=== PATIENT | female | born 1955 | race Caucasian/White ===

== ENCOUNTER 2024-02-19 19:13 | Inpatient (IN) | payer OTHER, MEDICARE, SELFPAY ==
[2024-02-19 13:17] VITALS: BP 141/98
[2024-02-19 14:22] LABS: Urine Albumin Trace (Neg - Trace); Urine Bilirubin Negative (Negative); Urine Character Clear (Clear); Urine Color Yellow; Urine Glucose Negative (Negative); Urine Ketone Negative (Negative); Urine Leukocyte Trace (Negative); Urine Nitrite Negative (Negative); Urine Occult Blood Negative (Negative); Urine Urobilinogen Negative (Neg - 1+)
[2024-02-19 14:54] LABS: Urine Hyaline Cast >15 /LPF (0-2); Urine Squamous Cell >30 /LPF (Few)
[2024-02-19 14:57] LABS: Urine Red Blood Cell 0-2 /HPF (0-2); Urine White Cell 0-2 /HPF (0-5)
[2024-02-19 15:55] LABS: % Basophils 0.5 % (0-2); % Eosinophils 2.9 % (0-6); % Immature Granulocytes 0.3 % (0-0.5); % Lymphocytes 21.4 % (20.5-51.1); % Monocytes 9.3 % (1.7-9.3); % Neutrophils 65.6 % (42.2-75.2); Absolute Basophils 0.1 10^3/uL (0-0.2); Absolute Eosinophils 0.3 10^3/uL (0-0.7); Absolute Monocytes 0.9 10^3/uL (0.1-0.6); Hematocrit 33.6 % (37.0-47.0); Hemoglobin 11.7 g/dL (12.0-16.0); Mean Corp Hgb Conc. 34.8 g/dL (33.0-37.0); Mean Corpuscular Hgb 31.1 pg (27.0-31.0); Mean Corpuscular Volume 89.4 fL (81.0-99.0); Mean Platelet Volume 8.8 fL (7.4-10.4); Nucleated Red Blood Cells % 0 %; Platelet Count 434 10^3/uL (130-400); Red Blood Cell Count 3.76 10^6/uL (4.20-5.40); White Blood Cell Count 9.2 10^3/uL (4.8-10.8)
[2024-02-19 15:58] LABS: ALT (SGPT) 22 U/L (0-35); AST (SGOT) 27 U/L (14-36); Alkaline Phosphatase 85 U/L (38-126); Blood Urea Nitrogen 18 mg/dl (7-17); Calcium 9.5 mg/dl (8.4-10.2); Carbon Dioxide 32 mmol/L (22-30); Chloride 100 mmol/L (98-107); Glucose 100 mg/dl (70-99); Lipase 32 U/L (23-300); Potassium 3.7 mmol/L (3.5-5.1); Sodium 135 mmol/L (135-145); Total Bilirubin 0.3 mg/dl (0.2-1.3); Total Protein 6.7 g/dl (6.3-8.2); eGFR 41.24
[2024-02-19] MEDS: NSS 500 IV ×2 (16:18→19:10)
[2024-02-19] MEDS: DILAUDID 1 MG IV ×2 (16:26→21:00)
[2024-02-19] MEDS: DILAUDID 0.5 MG IV ×2 (17:26→18:30)
--- NOTE | 2024-02-19 18:22 | ED.GENMED ---
History of Present Illness
General
Chief Complaint: Abdominal Symptoms
Source: patient and spouse
Exam Limitations: none
Time Seen by Provider: 02/19/24 14:21
Nursing documentation reviewed up to this point in time: agreed with
Travel History
Have you had any contact with someone who has COVID-19?: No
Do you have any symptoms of coronavirus? Fever > 100 degrees, chills, cough, shortness of breath, sore throat, loss of taste or smell, muscle aches, or headache?: No
History of Present Illness
History of Present Illness:
68-year-old female with past medical history of hypothyroidism, migraines, GERD who presents to the emergency department for evaluation of abdominal pain. Patient reports onset of symptoms 2 weeks ago and they have been constant and worsening since
then. She reports pain in the upper abdomen worse on the right side. No clear triggering or relieving factors noted. Associated with nausea but no significant vomiting. She says she has been having regular bowel movements no diarrhea. No
dysuria, hematuria, change in urinary frequency. She says she has had subjective fever off and on for the past 2 weeks. She denies any chest pain or shortness of breath. She denies any other complaints. She does have a prior surgical history of
cholecystectomy, appendectomy.
Review of Systems
Review of Systems
All Other Systems: ROS reviewed and negative except as documented in HPI and ROS
Constitutional: Reports fever and chills; Denies fatigue
EENT: Denies sore throat or runny nose
Respiratory: Denies cough or trouble breathing
Cardiac: Denies chest pain or palpitations
ABD/GI: Reports abdominal pain and nausea; Denies vomiting or diarrhea
: Denies dysuria, frequency or flank pain
Musculoskeletal: Denies neck pain or back pain
Neurological: Denies dizzy, headache, weakness or numbness
Phy Exam
Physical Exam
Physical Exam:
General: Awake, alert, oriented x3; appears uncomfortable
Head: Normocephalic, atraumatic
Eyes: Conjunctiva normal, sclera anicteric
Throat: Airway intact, handling secretions
Neck: Trachea midline, supple without meningismus
Lungs: Clear to auscultation bilaterally, no wheezing, rales, rhonchi
Heart: Regular rate and rhythm, no murmurs, gallops, or rubs
Abd: Soft, non distended, markedly tender to palpation epigastric region and right upper quadrant with voluntary guarding
Neuro: Cranial nerves grossly intact, speech fluid
Skin: no rash
Extremities: No edema in extremities, equal pulses in all extremities
Scores
Heart Failure Risk
Heart Failure Risk Score: Not Applicable
Heart Score for Chest Pain Patients
STEMI patient?: Not applicable
Withdrawal Assessment of Alcohol
Withdrawal Assessment Completed?: Not applicable
Course
Orders/Labs/Results
Orders:
Orders
02/19/24 13:51
Urinalysis Reflex To Culture Urgent
Date Specimen was Collected: 02/19/24
Time Specimen was Collected: 13:46
Urine Microscopic Reflex Cult Urgent
02/19/24 14:25
US Abdomen Complete/Upper Urgent
Comment:
Reason For Exam: RUQ abd pain
02/19/24 15:40
Complete Blood Count/With Diff Urgent
Comprehensive Metabolic Panel Urgent
Lipase Urgent
02/19/24 15:59
CT Abd/pelvis W Iv Cont Urgent
Comment:
Reason For Exam: RUQ/flank pain
0.9% Sodium Chloride 500 ml [Nss] 500 ml IV BOLUS
02/19/24 16:22
HYDROmorphone [Dilaudid] 1 mg IV NOW STA
02/19/24 16:46
HYDROmorphone [Dilaudid] 0.5 mg IV NOW STA
02/19/24 18:22
HYDROmorphone [Dilaudid] 0.5 mg IV NOW STA
Abnormal Lab Results
02/19/24 02/19/24
13:51 15:40
RBC 3.76 L 10^6/uL
(4.20-5.40)
Hgb 11.7 L g/dL
(12.0-16.0)
Hct 33.6 L %
(37.0-47.0)
MCH 31.1 H pg
(27.0-31.0)
Plt Count 434 H 10^3/uL
(130-400)
Absolute Monos (auto) 0.9 H 10^3/uL
(0.1-0.6)
Carbon Dioxide 32 H mmol/L
(22-30)
BUN 18 H mg/dl
(7-17)
Creatinine 1.4 H mg/dL
(0.6-1.0)
Glucose 100 H mg/dl
(70-99)
Leukocyte Esterase Rfl Trace A
(Negative)
02/19/24 15:40
02/19/24 15:40
Vital Signs
Initial and Last Documented VS:
Initial Vital Signs
Temp Pulse Resp BP Pulse Ox
36.7 C 96 16 141/98 98
02/19/24 13:17 02/19/24 13:17 02/19/24 13:17 02/19/24 13:17 02/19/24 13:17
Last Documented Vital Signs
Temp Pulse Resp BP Pulse Ox
36.7 C 96 16 141/98 98
02/19/24 13:17 02/19/24 13:17 02/19/24 13:17 02/19/24 13:17 02/19/24 13:17
MDM/Problems Addressed
Differential Diagnosis Includes:
Choledocholithiasis, pancreatitis, gastritis, PUD/perforated ulcer, hepatitis, nephrolithiasis, UTI
MDM/Problems Addressed:
68-year-old female presents for evaluation of abdominal pain worsening over the past 2 weeks primarily in the right upper quadrant. Associate with intermittent fever she says. Vital signs normal here. Exam as above. Plan to place an IV check
labs including a CBC and a CMP, urinalysis. Sent for upper abdominal ultrasound in triage which is pending�she is already status post cholecystectomy will likely plan for CT of the abdomen pelvis. Will treat pain. Monitor closely reassess after
the above.
Patient still having significant pain after initial dose of Dilaudid, will repeat.
Initial labs reviewed: CBC shows mild anemia otherwise unremarkable. CMP shows creatinine of 1.4 unclear baseline. Urinalysis negative for infection. Upper abdominal ultrasound was negative for any acute pathology. Awaiting results of CT.
CT called back by radiology�possibly acute pancreatitis; she does have significant stool burden as well. Interestingly her lipase is normal--possible patient has chronic pancreatitis causing lack of elevation. Her degree of pain and tenderness
seems out of proportion to her diagnosis of constipation. Will plan to provide IV fluids, will admit for continued management. Discussed with hospitalist for admission.
*Radiology
Radiology exam reviewed: radiology read reviewed
*Pulse Oximetry
Patient hypoxic: no
*Critical Care Note
Total Time (30-74mins, 75-104mins- exclusive of procedures): Not Applicable
Data Reviewed
Source: patient and spouse
Patient Management
Discussion with other providers: Hospitalist (Discussed with hospitalist) and Radiologist (Discussed with radiology)
Escalation/DeEscalation of care consider admission/obs:
Admission indicated
ED Attending Note
-
Portions of this chart may have been created with voice recognition software.� Occasional wrong word or��sound alike� substitutions may have occurred due to the inherent limitations of voice recognition software.
Discharge Plan
Departure
Patient Disposition: Admit
Date of Disposition: 02/19/24
Time of Disposition: 18:29
Admit to doctor: Mack
Presentation/result/management discussed w/ accepting MD/DO: Hospitalist
Discharge Problem:
Intractable abdominal pain, Constipation
Referrals:
Ernestine Rincon MD [Family Provider] -
Interventions
Interventions:
*Risk Screen - Suicide Last Done: 02/19/24 13:17
*General Assessment Last Done: 02/19/24 13:17
*Neglect/Abuse Screening Last Done: 02/19/24 13:17
ED- Fall Risk Assessment Last Done: 02/19/24 15:42
FX-Kptgts-Zottfhjclq Assessment Last Done: 02/19/24 15:42
Discharge Date and Time
Print Language: ARMENIAN
--- NOTE | 2024-02-19 18:55 | HPS.HSE ---
Family Physician
-
Family Physician: Ernestine Rincon MD
Chief Complaint
-
abdominal pain
History of Present Illness
68-year-old female with past medical history of hypertension, hypothyroidism, migraines, GERD, chronic back pain presenting to the emergency room for abdominal pain. Pain started 2 weeks ago and has been constant and worsening since then. Pain is
in the upper central/right abdomen worse on the right side. Pain radiates to the right upper shoulder and back. No triggering or relieving factors noted. Associated nausea and few episodes of vomiting since pain starting. She has been having
regular bowel movements without diarrhea. No urinary symptoms. Patient has had subjective fever intermittently for the past 2 weeks. She denies chest pain or shortness of breath.
She had her gallbladder removed 10 to 15 years ago.
She does not drink alcohol. No smoking. No marijuana use.
Medical History
Past Medical History
Past Medical History: Reports Other (hypertension, hypothyroidism, migraines, GERD, chronic back pain)
Past Surgical History: Reports Other (Cholecystectomy, appendectomy,)
Social History
Tobacco: Non-smoker
Alcohol: None
Drug: None
Family History
Family History: Not pertinent
Allergies / Home Medications
Allergies reflects when Allergies were last updated in [facility].
Home Medications with original date entered in [facility]
Allergy/Medication List:
Allergies
Allergy/AdvReac Type Severity Reaction Status Date / Time
lidocaine Allergy Unknown Verified 02/19/24 13:17
metoclopramide [From Reglan] Allergy Itching Verified 02/19/24 13:17
prochlorperazine Allergy Itching Verified 02/19/24 13:17
[From Compazine]
trimethobenzamide Allergy Itching Verified 02/19/24 13:17
[From Tigan]
Home Medications
alprazolam 0.25 mg tablet 0.25 mg PO BIDPRN PRN anxiety 02/19/24
vqprxkbogd-kblbynpvpnifl-qalhocyq 50 mg-325 mg-40 mg capsule 1 cap PO Q6HPRN PRN headaches 02/19/24
hydromorphone 3 mg rectal suppository 3 mg MN Q6HPRN PRN severe pain 02/19/24
hydroxyzine pamoate 25 mg capsule 25 mg PO TIDPRN PRN anxiety 02/19/24
lamotrigine 100 mg tablet,extended release 24 hr (Lamictal XR) 300 mg PO DAILY 02/19/24
levothyroxine 150 mcg tablet (Synthroid) 150 mcg PO DAILY 02/19/24
morphine 30 mg tablet,extended release 30 mg PO TID 02/19/24
ondansetron 4 mg disintegrating tablet 4 mg PO Q6HPRN PRN nausea 02/19/24
paroxetine HCl 30 mg tablet (Paxil) 30 mg PO DAILY 02/19/24
rabeprazole 20 mg tablet,delayed release (AcipHex) 20 mg PO BID 02/19/24
rimegepant 75 mg disintegrating tablet (Nurtec ODT) 75 mg PO DAILYPRN PRN migraine 02/19/24
topiramate 200 mg tablet (Topamax) 200 mg PO BID 02/19/24
valsartan 320 mg-hydrochlorothiazide 12.5 mg tablet 1 tab PO DAILY 02/19/24
Review of Systems
-
History Source: Patient
A 12 point ROS was completed and negative except as noted: Yes
Constitutional: Reports No Symptoms
EENT: Reports No Symptoms
Respiratory: Reports No Symptoms
Cardiac: Reports No Symptoms
Abdomen/GI: Reports See HPI
: Reports No Symptoms
Musculoskeletal: Reports No Symptoms
Skin: Reports No Symptoms
Neurological: Reports No Symptoms
Endocrine: Reports No Symptoms
Hematologic/Lymphatic: Reports No Symptoms
Psych: Reports No Symptoms
Physical Exam
Vital Signs
Vital Signs
Temp Pulse Resp BP Pulse Ox
98.1 F 96 16 141/98 98
02/19/24 13:17 02/19/24 13:17 02/19/24 13:17 02/19/24 13:17 02/19/24 13:17
Physical Exam
General: Well Developed, Well Nourished and No Apparent Distress
HEENT: NormoCephalic, Moist mucous membranes and Atraumatic
Respiratory: Clear
Cardiac: S1/S2 and Regular Rhythm; No Murmur or Rub
GI: Soft, Non Distended, Normal Bowel Sounds and Tender; No Organomegaly
Rectal: Deferred by Provider
Musculoskeletal: No Clubbing, No Cyanosis and No Edema
Skin: No Rash
Neuro: Nonfocal/grossly intact
Laboratory Results
-
02/19/24 15:40
02/19/24 15:40
Laboratory Results
Total Bilirubin 0.3 mg/dl (0.2-1.3) 02/19/24 15:40
AST 27 U/L (14-36) 02/19/24 15:40
ALT 22 U/L (0-35) 02/19/24 15:40
Alkaline Phosphatase 85 U/L (38-126) 02/19/24 15:40
Lipase 32 U/L (23-300) 02/19/24 15:40
Data Reviewed
-
Lab Data: Labs Reviewed by me
Old Records: Reviewed
Impression/Plan
-
IMPRESSION:
PLAN:
# Acute pancreatitis likely due to gallstones
# History of cholecystectomy
-Abdominal ultrasound unremarkable
-CT abdomen pelvis shows abnormal hypodense appearance of the pancreas with mild diffuse stranding
-Lipase 32
-N.p.o.
-IV fluids
-Check lipid panel
-Hold p.o. morphine, IV Dilaudid for breakthrough pain, Zofran
-GI consulted
# Acute kidney injury
-Monitor with IV fluids
-Hold valsartan/hydrochlorothiazide
Essential hypertension
-Hold valsartan/surgical diet
Hypothyroidism
-Continue levothyroxine
History of migraines
-Continue topiramate, Nurtec, Lamictal
GERD
-Continue PPI
Chronic back pain
-Hold p.o. morphine, IV Dilaudid for pain
Anxiety/depression
-Continue Xanax, paroxetine
Full code
DVT prophylaxis�heparin
N.p.o.
[2024-02-19 20:40] VITALS: BP 127/85; BMI 33.0
[2024-02-19 21:19] LABS: HDL Cholesterol 58 mg/dl; LDL Cholesterol, Calculated 95 mg/dl; Total Cholesterol 188 mg/dl (50-199); Triglyceride 175 mg/dl (10-149); Very Low Density Lipoprotein 35 mg/dl (0-30)
--- NOTE | 2024-02-19 21:32 | PTCARENOTE ---
pt arrived from ed. walked into room, aaox3, VSS, pt c/o sever abdominal pain and back pain. PRN IV dilaudid given, see MAR and assessment for further details. home medications sent to pharmacy. call mendez within reach.
[2024-02-19] MEDS: PROTONIX 40 MG PO (21:43)
[2024-02-19] MEDS: NON-FORMULARY ITEM 300 MG PO (22:55)
[2024-02-19] MEDS: NON-FORMULARY ITEM 1 UNIT PO (22:56)
[2024-02-19] MEDS: MS CONTIN (EXTENDED RELEASE) 30 MG PO (22:58)
[2024-02-19 23:25] VITALS: BP 134/92
[2024-02-19] MEDS: LR 1000 IV (23:34)
[2024-02-20] MEDS: DILAUDID 0.5 MG IV (00:19)
[2024-02-20] MEDS: ZOFRAN ODT (ORALLY DISINTEGRATING) 4 MG PO (00:19)
--- NOTE | 2024-02-20 01:10 | W.PN.UPDATE ---
Update Note
Progress Note Update
RN notified ENTRY LEVEL PROGRAMMER, patient asking for her home medication Morphine 30mg PO TID that is on hold per Dr. Gilliam, Patient told RN she will leave if she did not get her home medications. Medications ordered, Dr. Gilliam made aware
RN notified ENTRY LEVEL PROGRAMMER again, patient in tears and asking for more pain medications.
Patient seen and evaluated, on phone with her , stated she continuous to have pain 10/10 on right side of the abdomen to right back. requested IV Dilaudid 3mg now. Advised the side effects of a higher dose. Patient agreed for 0.5mg IV
Dilaudid for moderate pain and 1mg IV Dilaudid for severe pain, K pad and also Zofran SL now for nausea.
[2024-02-20] MEDS: DILAUDID 1 MG IV ×4 (01:14→10:49)
[2024-02-20] MEDS: ATARAX 25 MG PO ×2 (01:23→19:32)
[2024-02-20] MEDS: LR 1000 IV ×4 (03:24→19:26)
[2024-02-20] MEDS: NON-FORMULARY ITEM 1 UNIT PO ×3 (05:29→19:31)
--- NOTE | 2024-02-20 06:39 | W.PN.HOSP.TC ---
Today's Communication/Plan
-
pain control
bowel rest npo except meds
IVF support
GI eval
Assessment / Plan
Assessment / Plan
Physical Exam
General: Mild moderate distress d/t pain Obese
HEENT: NormoCephalic, Moist mucous membranes and Atraumatic
Respiratory: Clear
Cardiac: S1/S2 and Regular Rhythm; No Murmur or Rub
GI: Soft, Non Distended, Normal Bowel Sounds and Tender; No Organomegaly
Musculoskeletal: No Clubbing, No Cyanosis and No Edema
Skin: No Rash
Neuro: Nonfocal/grossly intact
68F HTN Hypothyroidism Migraines GERD Chronic Back Pain p/w abd pain 2 wks possibly due to acute pancreatitis.
# Acute pancreatitis likely due to gallstones
# History of cholecystectomy
-Abdominal ultrasound unremarkable
-CT abdomen pelvis shows abnormal hypodense appearance of the pancreas with mild diffuse stranding
-Lipase 32
-N.p.o. except meds
-IV fluids
-Lipid panel appreciated mild Triglyceride Cholesterol elevation
-Cont home PO morphine, IV Dilaudid for breakthrough pain, Zofran
-GI consult appreciated
-Follow up MRI/MRCP results
# Acute kidney injury
-Monitor with IV fluids
-Hold valsartan/hydrochlorothiazide
Essential hypertension
-Hold valsartan/surgical diet
Hypothyroidism
-Continue levothyroxine
History of migraines
-Continue topiramate, Nurtec, Lamictal
GERD
-Continue PPI
Chronic back pain
-cont home PO morphine
-IV Dilaudid prn
Anxiety/depression
-Continue home atarax prn, paroxetine discontinued patient denies taking
Full code
DVT prophylaxis�heparin
I spent a total of 50 minutes with the patient or on the floor. More than 50% of this time involved counseling and coordination of care.
Anticipated Discharge: 24 - 48 hours
Subjective/Interval History
-
Date of Service: February 20, 2024
Reports abd pain right sided associate intermittent nausea denies vomiting. Reports regular bowel movements, denies diarrhea.
Objective Data
-
Labs:
Laboratory Results
02/20/24
06:00
WBC Pending
Hgb Pending
Hct Pending
Plt Count Pending
Sodium Pending
Potassium Pending
Chloride Pending
Carbon Dioxide Pending
BUN Pending
Creatinine Pending
Glucose Pending
Calcium Pending
Total Bilirubin Pending
AST Pending
ALT Pending
Alkaline Phosphatase Pending
Vital Signs:
Vital Signs
Temp Pulse Resp BP Pulse Ox
98.4 F 88 18 134/92 97
02/19/24 23:25 02/19/24 23:25 02/19/24 23:25 02/19/24 23:25 02/19/24 23:25
I&O
02/18/24 02/19/24 02/20/24
06:59 06:59 06:59
Intake Total 240 / 240
Balance 240 / 240
[2024-02-20 07:00] VITALS: BP 135/55
[2024-02-20 07:58] LABS: % Eosinophils 7.6 % (0-6); % Immature Granulocytes 0.2 % (0-0.5); % Lymphocytes 40.2 % (20.5-51.1); % Monocytes 9.8 % (1.7-9.3); % Neutrophils 41.2 % (42.2-75.2); Absolute Basophils 0.1 10^3/uL (0-0.2); Absolute Eosinophils 0.4 10^3/uL (0-0.7); Absolute Monocytes 0.5 10^3/uL (0.1-0.6); Hematocrit 28.1 % (37.0-47.0); Hemoglobin 9.7 g/dL (12.0-16.0); Mean Corp Hgb Conc. 34.5 g/dL (33.0-37.0); Mean Corpuscular Hgb 30.7 pg (27.0-31.0); Mean Corpuscular Volume 88.9 fL (81.0-99.0); Mean Platelet Volume 8.9 fL (7.4-10.4); Nucleated Red Blood Cells % 0 %; Platelet Count 330 10^3/uL (130-400); Red Blood Cell Count 3.16 10^6/uL (4.20-5.40); Red Cell Dist. Width 13.7 % (11.5-14.5); White Blood Cell Count 4.9 10^3/uL (4.8-10.8)
[2024-02-20] MEDS: MS CONTIN (EXTENDED RELEASE) 30 MG PO ×3 (07:58→22:08)
[2024-02-20] MEDS: PROTONIX 40 MG PO ×2 (07:58→19:50)
[2024-02-20] MEDS: NON-FORMULARY ITEM PO (08:06)
[2024-02-20 08:34] LABS: ALT (SGPT) 16 U/L (0-35); AST (SGOT) 26 U/L (14-36); Alkaline Phosphatase 73 U/L (38-126); Blood Urea Nitrogen 12 mg/dl (7-17); Calcium 8.8 mg/dl (8.4-10.2); Carbon Dioxide 25 mmol/L (22-30); Chloride 105 mmol/L (98-107); Estimated Creatinine Clearance 56 ml/min; Glucose 94 mg/dl (70-99); Potassium 3.9 mmol/L (3.5-5.1); Sodium 136 mmol/L (135-145); Total Bilirubin 0.7 mg/dl (0.2-1.3); Total Protein 5.4 g/dl (6.3-8.2); eGFR > 60.00
--- NOTE | 2024-02-20 12:04 | CON.GI ---
Addendum entered and electronically signed by Etelvina Camejo MD 02/20/24 17:26:
I saw and examined the patient.
The BOOKING MANAGER or PA's note was reviewed and I agree with the note.
Comment: 68-year-old female past medical history as below follows with Dr. Tabor on outpatient presenting with abdominal pain throughout her upper abdomen for the last 2 weeks. She underwent a CT scan which showed pancreatitis and moderate amount
of stool in the colon. Ultrasound unremarkable. Lipase is normal. Hemoglobin 9.7, normal white count, normal lipase, normal LFTs. She has history of cholecystectomy and denies alcohol use. Recently was placed on Paxil I looked up I do not see a
clear link of Paxil with pancreatitis. HCTZ reviewed with her has been associated with pancreatitis but she has been on it for more than 30 years. MRI/MRCP is done and pending official read. IgG4 ordered. I will increase IV fluids to 150 given
her weight. Monitor I's and O's. Continue NPO. She continues to have significant amount of pain - of note on home morphine as well. Continue pain meds which I reviewed with the nurse. Will also check CRP in the morning.
Original Note:
Consultation
-
Date/Time Consultation Requested: 02/19/24 2300
Date/Time Consultation Performed: 02/20/24 1130
Requesting Provider: Dr. Mendoza
Performing Provider: Dr. Camejo/CAROL Connors
Reason for Consultation: pancreatitis
Medical History
Chief Complaint / HPI
Chief Complaint: abd pain
History of Present Illness:
68 yr old female with PMH HTN, HLD, GERD/Barretts, hypothyroid and chronic pain presents to ER with 2 week hx of abd pain. Asked to evaluate for the same. Patient states that she started with acute onset of abdominal pain that was in the epigastric
area that radiated to the right with pain into her back that was dull,intermittent, nothing made better except for a heating pad and rest, food and movement made worse. Associated with fevers, chills, nausea and vomiting that was bilious nature,
she did have pruritus. She denies any acholic stools or bilirubinuria. She was started on Paxil approximately a month and a half ago and dose was increased. She has since stopped this. The pain changed locations and became more periumbilical and
constant with more of a burning sensation prompting her to call her primary sterile preparation technician who is Dr. Estrada. Labs were ordered I did contact patient's sterile preparation technician who told me that her alk phos was elevated as well as GGTP. Patient
also had an elevated triglyceride level. Her lipase was within normal limits. But because of her symptoms she was asked to go to the emergency room for concerns of pancreatitis. The patient does not drink any alcohol. She does not smoke. She
has a history of a cholecystectomy approximately 10 years ago. Initially labs showed WBC 9.2, hemoglobin 11.7, hematocrit 33.6, platelet count 434, MCV 89.4, MCH 31.1, sodium 135, potassium 3.7, chloride 100, CO2 32, BUN 18, creatinine 1.4, calcium
9.5, glucose 100, total bilirubin 0.3, AST 27, ALT 22, alk phos 85, triglycerides 175, lipase 32. After giving fluid bolus followed by IV fluids at 200 cc an hour now dropped down to 100 cc an hour hemoglobin is 9.7. Creatinine also improved and
is 1.0. Ultrasound of the abdomen shows no acute intra-abdominal process identified. Status post cholecystectomy. CBD measures [address] of the abdomen and pelvis with IV contrast only shows 2 hypodensities in the liver most consistent with
cysts. No other definite lesion identified in the liver. Spleen unremarkable. The pancreas is hypodense, and is ill-defined. No adjacent fluid or fluid collection. Minimal stranding inferior to the pancreas, suggest pancreatitis. Moderate
amount of stool throughout the colon. No bowel obstruction. Mild diverticulosis. No CT evidence of diverticulitis
Past Medical History
Past Medical History: GERD (Barretts), HTN, Hypercholesterolemia, Hypothyroidism, Psychiatric (depression, anxiety) and Other (chronic back pain. migraine)
Past Surgical History: Appendectomy and Cholecystectomy
Social History
Tobacco: Non-Smoker
Alcohol: None
Drug: None
Personal:
Living: With Family
Family History
Family History: Other (No fam hx GI malignancy or IBD)
Allergies / Home Medications
Allergy/AdvReac Type Severity Reaction Status Date / Time
lidocaine Allergy Unknown Verified 02/19/24 13:17
metoclopramide [From Reglan] Allergy Itching Verified 02/19/24 13:17
prochlorperazine Allergy Itching Verified 02/19/24 13:17
[From Compazine]
trimethobenzamide Allergy Itching Verified 02/19/24 13:17
[From Tigan]
�Medication �Instructions �Recorded
alprazolam 0.25 mg tablet 0.25 mg PO BIDPRN PRN anxiety 02/19/24
pvzyzodqxk-qfgiwedmfimtp-jvuaobrd 1 cap PO Q6HPRN PRN headaches 02/19/24
50 mg-325 mg-40 mg capsule
hydromorphone 3 mg rectal 3 mg CO Q6HPRN PRN severe pain 02/19/24
suppository
hydroxyzine pamoate 25 mg capsule 25 mg PO TIDPRN PRN anxiety 02/19/24
lamotrigine 100 mg tablet,extended 300 mg PO HS 02/19/24
release 24 hr (Lamictal XR)
levothyroxine 150 mcg tablet 150 mcg PO DAILY 02/19/24
(Synthroid)
morphine 30 mg tablet,extended 30 mg PO TID 02/19/24
release
ondansetron 4 mg disintegrating 4 mg PO Q6HPRN PRN nausea 02/19/24
tablet
promethazine 50 mg rectal 50 mg CO Q8HPRN PRN nausea 02/19/24
suppository (Promethegan)
rabeprazole 20 mg tablet,delayed 20 mg PO BID 02/19/24
release (AcipHex)
rimegepant 75 mg disintegrating 75 mg PO DAILYPRN PRN migraine 02/19/24
tablet (Nurtec ODT)
topiramate 200 mg tablet (Topamax) 200 mg PO BID 02/19/24
valsartan 320 1 tab PO DAILY 02/19/24
mg-hydrochlorothiazide 12.5 mg
tablet
Review of Systems
-
All other systems: A 12 pt ROS was Negative except as stated above in HPI
Vital Signs
Temp Pulse Resp BP Pulse Ox
97.9 F 83 18 135/55 93
02/20/24 07:00 02/20/24 07:00 02/20/24 07:00 02/20/24 07:00 02/20/24 07:00
Physical Exam
Exam
General: No Apparent Distress
HEENT: Anicteric
GI: Soft, Non Distended, Normal Bowel Sounds and Tender (periumbilical/RUQ/epigstric)
Musculoskeletal: No Edema
Skin: Warm and Dry
Neuro: AO x 3
Psych: Calm
Results
WBC 4.9 10^3/uL (4.8-10.8) 02/20/24 07:45
Hgb 9.7 g/dL (12.0-16.0) L 02/20/24 07:45
Hct 28.1 % (37.0-47.0) L 02/20/24 07:45
MCV 88.9 fL (81.0-99.0) 02/20/24 07:45
Plt Count 330 10^3/uL (130-400) D 02/20/24 07:45
Absolute Neuts (auto) 2.0 10^3/uL (1.4-6.5) 02/20/24 07:45
Sodium 136 mmol/L (135-145) 02/20/24 07:45
Potassium 3.9 mmol/L (3.5-5.1) 02/20/24 07:45
Chloride 105 mmol/L (98-107) 02/20/24 07:45
Carbon Dioxide 25 mmol/L (22-30) 02/20/24 07:45
BUN 12 mg/dl (7-17) 02/20/24 07:45
Creatinine 1.0 mg/dL (0.6-1.0) 02/20/24 07:45
Calcium 8.8 mg/dl (8.4-10.2) 02/20/24 07:45
Total Bilirubin 0.7 mg/dl (0.2-1.3) 02/20/24 07:45
AST 26 U/L (14-36) 02/20/24 07:45
ALT 16 U/L (0-35) 02/20/24 07:45
Alkaline Phosphatase 73 U/L (38-126) 02/20/24 07:45
Lipase 32 U/L (23-300) 02/19/24 15:40
Diagnostic Image Results:
CT Abd/Pelvis wth IV contrast:
IMPRESSION:
Abnormal hypodense appearance to the pancreas, with mild diffuse stranding, suggests pancreatitis. No adjacent free fluid or fluid collection to suggest an abscess. No free air.
Moderate amount of stool throughout the colon. No bowel obstruction Mild diverticulosis. No CT evidence for diverticulitis.
Results discussed with Dr. Naylor at 6:20 PM.
Electronically signed by Harini Cardenas MD 02/19/2024 6:26 PM
US Abd:
IMPRESSION: No acute intra-abdominal process identified sonographically. Post cholecystectomy.
Prior GI Procedures:
EGD: 'couple years ago' Records unavailable to me. GERD/Barretts ([facility])
Colonoscopy: 'couple years ago' records unavailable to me. ([facility])
Assessment / Plan
-
68 yr old female with PMH HTN, HLD, GERD/Barretts, hypothyroid and chronic pain presents to ER with 2 week hx of abd pain. Asked to evaluate for the same. Patient states that she started with acute onset of abdominal pain that was in the epigastric
area that radiated to the right with pain into her back that was dull,intermittent, nothing made better except for a heating pad and rest, food and movement made worse. Associated with fevers, chills, nausea and vomiting that was bilious nature,
she did have pruritus. She denies any acholic stools or bilirubinuria. She was started on Paxil approximately a month and a half ago and dose was increased. She has since stopped this. The pain changed locations and became more periumbilical and
constant with more of a burning sensation prompting her to call her primary sterile preparation technician who is Dr. Estrada. Labs were ordered I did contact patient's sterile preparation technician who told me that her alk phos was elevated as well as GGTP. Patient
also had an elevated triglyceride level. Her lipase was within normal limits. But because of her symptoms she was asked to go to the emergency room for concerns of pancreatitis. CT imaging does not show stranding about the pancreas consistent with
pancreatitis. Lipase and LFTs are normal here. Triglycerides slightly elevated. Still with continued pain.
Impression:
Pancreatitis
--no ETOH, s/p CCY but had elevated Alk Phos and GGTP as o/p, new Paxil (not common side effect, now stopped), Trig 133. Calcium WNL
--Patient on valsartan with HCTZ (could be possibility)
GERD/Barretts
Chronic Pain
Plan:
-Npo, when pain improves will start clear liquids
-IVF
-Incentive spirometer
-Pain control
-Check IgG4
-Obtain MRI/MRCP for completeness, had elevated Alk Phos and GGTP.
-Will need outpatient EUS in 6-8 weeks, discussed with Dr. Estrada (will arrange with Dr. Stovall here for EUS) and have patient follow up with Dr. Estrada for primary GI concerns.
-Continue Pantoprazole
Data Reviewed
-
CT Scan: Report Reviewed by me
Ultrasound: Report Reviewed by me
-
-
Thank you for consultation and allowing me to participate in the patient's care. Please call the sales relationship manager GI physician during the after hours with any questions or concerns.
--- NOTE | 2024-02-20 12:57 | CM ---
Reviewed chart, met with patient to obtain information for assessment. Patient 's spouse was at bedside. Patient stated that she lives with her spouse in a two story home with two steps to enter. She described herself as independent with all her
ADLs, personal care, dressing and bathing. She ambulates without use of an assistive device.
Patient relayed that she can drive and can transport herself to appointments and do her own shopping. Patient's spouse can drive patient as well as she has not felt well for the past few weeks.
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
She denied ever having been to a SNF. She has never had VN services.
Patient has a prescription plan and uses [facility] in [place] for all of her medications.
Patient's PCP is Zully Rincon,
Physically patient stated that she is in a lot of pain but functionally she is at baseline and her spouse confirmed that he can support her.
Plan: Case management will continue to follow and assist with discharge planning. Patient should be able to return home when stable.
[2024-02-20 15:29] VITALS: BP 136/72
[2024-02-20] MEDS: FLUSH (NSS) 2 FLUSH IV (15:33)
[2024-02-20] MEDS: DILAUDID 2 MG IV ×3 (15:33→23:48)
[2024-02-20] MEDS: LR IV (18:14)
[2024-02-20] MEDS: FIORICET 1 TAB PO (19:50)
[2024-02-20] MEDS: NON-FORMULARY ITEM 300 MG PO (22:07)
[2024-02-20] MEDS: ZOFRAN 4 MG IV (22:21)
[2024-02-20 22:24] LABS: Hepatitis C Antibody Negative (Negative)
[2024-02-21 00:12] VITALS: BP 147/61
[2024-02-21] MEDS: ATARAX 25 MG PO (00:13)
[2024-02-21] MEDS: LR 1000 IV ×2 (02:46→09:51)
[2024-02-21] MEDS: DILAUDID 2 MG IV ×2 (03:44→09:30)
--- NOTE | 2024-02-21 06:00 | VATNOTE ---
Skin irritation around midline dressing marked yesterday appears to be resolving as reported by patient.
[2024-02-21] MEDS: NON-FORMULARY ITEM 1 UNIT PO ×2 (06:04→09:03)
[2024-02-21 07:00] VITALS: BP 125/63
[2024-02-21 07:27] LABS: Hematocrit 27.6 % (37.0-47.0); Hemoglobin 9.7 g/dL (12.0-16.0); Mean Corp Hgb Conc. 35.1 g/dL (33.0-37.0); Mean Corpuscular Volume 88.2 fL (81.0-99.0); Mean Platelet Volume 8.9 fL (7.4-10.4); Platelet Count 307 10^3/uL (130-400); Red Blood Cell Count 3.13 10^6/uL (4.20-5.40); Red Cell Dist. Width 13.4 % (11.5-14.5); White Blood Cell Count 4.9 10^3/uL (4.8-10.8)
[2024-02-21 08:14] LABS: ALT (SGPT) 17 U/L (0-35); AST (SGOT) 29 U/L (14-36); Albumin 3.1 g/dl (3.5-5.0); Alkaline Phosphatase 74 U/L (38-126); Blood Urea Nitrogen 9 mg/dl (7-17); Carbon Dioxide 22 mmol/L (22-30); Chloride 107 mmol/L (98-107); Estimated Creatinine Clearance 62 ml/min; Glucose 86 mg/dl (70-99); Potassium 3.8 mmol/L (3.5-5.1); Sodium 135 mmol/L (135-145); Total Bilirubin 0.6 mg/dl (0.2-1.3); Total Protein 5.4 g/dl (6.3-8.2); eGFR > 60.00
[2024-02-21 08:22] LABS: Direct Bilirubin 0.3 mg/dl (0.0-0.4)
[2024-02-21] MEDS: MS CONTIN (EXTENDED RELEASE) 30 MG PO (09:03)
[2024-02-21] MEDS: PROTONIX 40 MG PO (09:03)
[2024-02-21] MEDS: ZOFRAN 4 MG IV (09:51)
[2024-02-21 12:12] LABS: Lipase 29 U/L (23-300)
--- NOTE | 2024-02-21 12:15 | W.PN.UPDATE ---
Update Note
Progress Note Update
Patient AOX3 competent to make her own medical decisions requested to leave against medical advice.
Risk of leaving were discussed such as recurrence of symptoms, increased risk of injury and even the possibility of .
Patient able to verbalize her understanding of risk, nonetheless requested to be allowed to leave.
Patient's wishes were respected and she signed out AMA.
--- NOTE | 2024-02-21 12:15 | W.DCSUMMARY ---
Discharge Summary
Discharge Data
Date of Admission: 02/19/24
Date of Discharge: 02/21/24
-
Pending Results: No
Hospital Course
68F HTN Hypothyroidism Migraines GERD Chronic Back Pain p/w abd pain 2 wks possibly due to acute pancreatitis. Acute pancreatitis suspected due to gallstones, History of cholecystectomy, Abdominal ultrasound unremarkable, CT abdomen pelvis showed
abnormal hypodense appearance of the pancreas with mild diffuse stranding suggestive pancreatitis. Lipase however low 32. Placed on bowel rest, npo except meds, IV fluids, lipid panel appreciated mild Triglyceride Cholesterol elevation. Home PO
morphine, IV Dilaudid for breakthrough pain, Zofran for nausea was administered. MRI/MRCP noted no acute process in the abdomen, severely limited examination due to patient motion and breathing motion artifact. Similar to the CT scan of the
abdomen and pelvis the day before there was a small cyst in the liver. There was dilatation of the common bile duct measuring 9 mm however no filling defect. Pancreatic duct normal caliber. There was peripancreatic diffuse volume loss, atrophy and
fatty replacement. No significant stranding about the pancreas to suggest pancreatitis. ROLLY resolved with IVF. Patient later decided to sign out AMA as noted in Hospitalist Update Note 02/21/24
Discharge Plan
-
Patient Disposition: Against Medical Advice
Referrals:
Ernestine Rincon MD [Family Provider] -
Prescriptions:
No Action
xmajisekrz-ggtlhqaqhisib-gvsl 50-325-40 mg capsule
1 cap PO Q6HPRN PRN (Reason: headaches)
rabeprazole [AcipHex] 20 mg tablet,delayed release (DR/EC)
20 mg PO BID
morphine 30 mg tablet extended release
30 mg PO TID
alprazolam 0.25 mg tablet
0.25 mg PO BIDPRN PRN (Reason: anxiety)
levothyroxine [Synthroid] 150 mcg Tablet
150 mcg PO DAILY@06
topiramate [Topamax] 200 mg tablet
200 mg PO BID
ondansetron 4 mg tablet,disintegrating
4 mg PO Q6HPRN PRN (Reason: nausea)
hydroxyzine pamoate 25 mg capsule
25 mg PO TIDPRN PRN (Reason: anxiety)
hydromorphone 3 mg Suppository
3 mg MO Q6HPRN PRN (Reason: severe pain)
valsartan-hydrochlorothiazide 320-12.5 mg tablet
1 tab PO DAILY
lamotrigine [Lamictal XR] 100 mg tablet extended release 24hr
300 mg PO HS
Nurtec ODT 75 mg tablet,disintegrating
75 mg PO DAILYPRN PRN (Reason: migraine)
promethazine [Promethegan] 50 mg suppository
50 mg MO Q8HPRN PRN (Reason: nausea)
Discharge Date and Time
Discharge Date/Time: 02/21/24 13:05
Print Language: MONEGASQUE
[2024-02-21] MEDS: DILAUDID 1 MG IV (12:34)
[2024-02-21 12:43] VITALS: BP 152/79
--- NOTE | 2024-02-21 12:51 | W.PN.GI.CBS2 ---
Today's Communication / Plan
-
pt signing out AMA
Assessment / Plan
-
68 yr old female with PMH HTN, HLD, GERD/Barretts, hypothyroid and chronic pain presents to ER with 2 week hx of abd pain. Asked to evaluate for the same. Patient states that she started with acute onset of abdominal pain that was in the epigastric
area that radiated to the right with pain into her back that was dull,intermittent, nothing made better except for a heating pad and rest, food and movement made worse. Associated with fevers, chills, nausea and vomiting that was bilious nature,
she did have pruritus. She denies any acholic stools or bilirubinuria. She was started on Paxil approximately a month and a half ago and dose was increased. She has since stopped this. The pain changed locations and became more periumbilical and
constant with more of a burning sensation prompting her to call her primary plant mechanic who is Dr. Estrada. Labs were ordered I did contact patient's plant mechanic who told me that her alk phos was elevated as well as GGTP. Patient
also had an elevated triglyceride level. Her lipase was within normal limits. But because of her symptoms she was asked to go to the emergency room for concerns of pancreatitis. CT imaging does not show stranding about the pancreas consistent with
pancreatitis. Lipase and LFTs are normal here. Triglycerides slightly elevated. Still with continued pain.
Impression:
Pancreatitis
--no ETOH, s/p CCY but had elevated Alk Phos and GGTP as o/p, new Paxil (not common side effect, now stopped), Trig 133. Calcium WNL
--Patient on valsartan with HCTZ (could be possibility)
GERD/Barretts
Chronic Pain
MRI did NOT show pancreatitis - lipase normal; questionable if pain is from pancreatitis.
Patient wants to leave AMA - I discussed typically we try to get patient off pain meds and slowly advance diet prior to discharge. Also since MRI didn't show pancreatitis question if diagnosis and would consider further work up if pain persisted if
patient was to stay. I d/w Dr. Sheldon.
Subjective
Subjective
Date of Service: February 21, 2024
pt still with pain but upset and wants to leave AMA
Objective
Data Reviewed
Laboratory Data:
Laboratory Results
02/21/24 06:55
02/21/24 06:55
Laboratory Results
Total Bilirubin 0.6 mg/dl (0.2-1.3) 02/21/24 06:55
AST 29 U/L (14-36) 02/21/24 06:55
ALT 17 U/L (0-35) 02/21/24 06:55
Alkaline Phosphatase 74 U/L (38-126) 02/21/24 06:55
Lipase 29 U/L (23-300) 02/21/24 06:55
Vital Signs and I&O:
Vital Signs
Temp Pulse Resp BP Pulse Ox
98.5 F 78 18 152/79 98
02/21/24 12:43 02/21/24 12:43 02/21/24 12:43 02/21/24 12:43 02/21/24 12:43
I&O
02/20/24 02/21/24 02/22/24
06:59 06:59 06:59
Intake Total 240 / 240 1200 / 1200
Balance 240 / 240 1200 / 1200
Physical Exam
Physical Exam
GI: Non Distended and Non Tender
--- NOTE | 2024-02-21 13:03 | PTCARENOTE ---
Pt left AMA at this time and taken out in wheelchair by staff. Stat dose of pain meds given, left Midline removed by IVT afterwards. Pt signed medical release form in (chart) Vital signs recorded on discharge.
[2024-02-22 12:55] LABS: IgG Subclass 4 37 mg/dL (1-123)
== END 2024-02-21 13:05 | disposition left against medical advice (07) | DRG 439 ==
LOC: 3 WEST ACU 19:13
PROVIDERS: Nurse Practitioner; Student in an Organized Health Care Education/Training Program; ADMITTING PHYSICIAN Hospitalist; ATTENDING PHYSICIAN Internal Medicine; CONSULT PHYSICIAN Internal Medicine Gastroenterology; EMERGENCY PHYSICIAN Emergency Medicine; FAMILY PHYSICIAN Family Medicine
DX: K85.90 Acute pancreatitis without necrosis or infection, unspecified (principal); N17.9 Acute kidney failure, unspecified; K80.20 Calculus of gallbladder without cholecystitis without obstruction; K76.9 Liver disease, unspecified; I10 Essential (primary) hypertension; E03.9 Hypothyroidism, unspecified; K21.9 Gastro-esophageal reflux disease without esophagitis; F41.9 Anxiety disorder, unspecified; F32.A Depression, unspecified; G89.29 Other chronic pain; K22.70 Barrett's esophagus without dysplasia; K57.30 Diverticulosis of large intestine without perforation or abscess without bleeding; Z90.49 Acquired absence of other specified parts of digestive tract
CPT/HCPCS: 74177; 74183; 76700; 80053; 80061; 81003; 81015; 82248; 82787; 83690; 85025; 85027; 86140; 86803; 96361; 96374; 96376; 99285; A9575; Q9967